=== PATIENT | female | born 1980 | race African-American/Black ===

== ENCOUNTER → 2016-07-19 | Outpatient (CLI) | payer OTHER ==
[~2016-07-19] MED LIST: AMOXICILLIN500 M1 PO; MEDROL4 MG/DOSE- PO
== END | disposition home or self-care (01) ==
LOC: CBAR 11:52
DX: Z01.818 Encounter for other preprocedural examination (principal); E66.01 Morbid (severe) obesity due to excess calories
CPT/HCPCS: G0463

== ENCOUNTER → 2016-08-16 | Outpatient (CLI) | payer OTHER | END | disposition home or self-care (01) | LOC: CBAR 10:49 | DX: Z01.818 Encounter for other preprocedural examination (principal); E66.01 Morbid (severe) obesity due to excess calories | CPT/HCPCS: G0463 ==

== ENCOUNTER → 2016-09-13 | Outpatient (CLI) | payer OTHER | END | disposition home or self-care (01) | LOC: CBAR 10:19 | DX: Z01.818 Encounter for other preprocedural examination (principal); E66.01 Morbid (severe) obesity due to excess calories | CPT/HCPCS: G0463 ==

== ENCOUNTER → 2016-09-29 | Outpatient (CLI) | payer OTHER ==
--- NOTE | ~2016-09-29 | MR32 ---
[facility] A Service of [facility] RADIOLOGY TEXT RESULTS PATIENT: BRENDAN LAGOS LOCATION: [facility] : 78 UNIT #: [id number] AGE: [address]: ELSI EUGENE PA-C SEX: F ORDER DR: [id number] [facility]. [place], [place] [address] [id number] O MR#: [id number] Acc #: [id number] NAME: BRENDAN LAGOS : 1980 SEX: F STUDY DATE/TIME: 09/29/2016 10:03 UNIT: [facility] ROOM: STUDY DESCRIPTION: MR Cervical Wo Contrast Attending Physician: Elsi Eugene Pa-C Referring Physician: Elsi Eugene Pa-C Ordering Physician: Elsi Eugene Pa-C Primary Care Physician: Nehemiah Arboleda M.D. MRI CENTER REPORT This report is preliminary unless electronic signature is present. EXAM Cervical spine MRI without. HISTORY Degenerative disc disease. Patient has chronic right neck and right shoulder pain since August 2013. Work related injury per patient. Right arm pain and numbness ever since the patient has not improved with shoulder injections. COMMENT MRI of the cervical spine performed without contrast using routine 1.5T imaging technique. COMPARISON No comparison. FINDINGS There is straightening of cervical lordosis. Bone marrow signal intensity is cellular but this is probably within the range of normal for age group and given likely obesity. There is mild cervical intervertebral disc desiccation most apparent at C5-6 and C6-7 where there is also some mild endplate spondylosis. There is no Chiari-I malformation. The cervical cord is normal in size and signal intensity. At C2-3, there is no significant abnormality. At C3-4, there is no significant abnormality. At C4-5, there is a minimal concentric disc bulge. Mild left foraminal narrowing. No canal stenosis. At C5-6, mild concentric disc bulging endplate spondylosis. No canal stenosis. Mild effacement of the anterior cord and thecal sac. There is [facility] A Service of [facility] RADIOLOGY TEXT RESULTS PATIENT: BRENDAN LAGOS LOCATION: [facility] : 78 UNIT #: [id number] AGE: [address]: ELSI EUGENE PA-C SEX: F ORDER DR: also mild left foraminal narrowing. At C6-7, there is concentric disc bulge endplate spondylosis with effacement of the left anterior thecal sac. There is no central canal stenosis. There is [id number] left foraminal narrowing. At C7-T1, no significant canal or foraminal impingement. I believe there is bilateral facet degenerative change. IMPRESSION 1. No evidence for cervical canal stenosis. 2. There are some cervical degenerative changes more prominent lower cervical levels. Please refer to the comment section for description of some left-sided foraminal narrowing. Dictated by... Francie Pugh M.D. THIS IS AN ELECTRONICALLY VERIFIED REPORT Francie Pugh M.D. at 09/30/2016 8:25 AM MARY/min TD: 09/30/2016 00:17 JOB #: [id number] MRI CENTER REPORT Page 1 of 1 COPY
== END | disposition home or self-care (01) ==
LOC: CMRI 09-22 13:00
DX: M50.30 Other cervical disc degeneration, unspecified cervical region (principal); M47.892 Other spondylosis, cervical region
CPT/HCPCS: 72141

== ENCOUNTER → 2016-09-30 | Outpatient (CLI) | payer OTHER ==
--- NOTE | ~2016-09-30 | CR151 ---
[facility] A Service of [facility] RADIOLOGY TEXT RESULTS PATIENT: BRENDAN LAGOS LOCATION: [facility] : 78 UNIT #: [id number] AGE: [address]: MONICA RIGGS MD SEX: F ORDER DR: [id number] [facility] [address] [facility]. [place], [place] [address] [id number] O MR#: [id number] Acc #: [id number] NAME: BRENDAN LAGOS : 1980 SEX: F STUDY DATE/TIME: 09/30/2016 13:50 UNIT: [facility] ROOM: STUDY DESCRIPTION: CR Hip Min 2 Views Rt Attending Physician: Monica Riggs M.D. Referring Physician: Monica Riggs M.D. Ordering Physician: Monica Riggs M.D. Primary Care Physician: Monica Riggs M.D. MEDICAL IMAGING REPORT This report is preliminary unless electronic signature is present EXAM Right hip, 2 views. DATE OF EXAM 09/30/2016 HISTORY Right hip pain, right groin pain for 3 months with no known injury. FINDINGS AP and oblique examination of the hip shows adequate mineralization of the bones and a normal anatomic relationship of the femoral head with the acetabulum. There are no hypertrophic changes, fractures, dislocation, or joint capsular distension. No radiopaque foreign body is present about the soft tissues of the hip. IMPRESSION Normal right hip. Dictated by... Mitul Bolaños M.D. THIS IS AN ELECTRONICALLY VERIFIED REPORT Mitul Bolaños M.D. at 10/04/2016 9:19 AM MANDI/min TD: 09/30/2016 17:21 JOB #: [id number] MEDICAL IMAGING REPORT Page 1 of 1 COPY
== END | disposition home or self-care (01) ==
LOC: CRAD 13:34
DX: R10.30 Lower abdominal pain, unspecified (principal)
CPT/HCPCS: 73502

== ENCOUNTER 2016-10-12 11:47 | Emergency (ER) | payer OTHER | END 2016-10-12 12:58 | disposition home or self-care (01) | LOC: CED 11:47 → CFTX 11:47 | DX: L02.416 Cutaneous abscess of left lower limb (principal); I10 Essential (primary) hypertension; E78.5 Hyperlipidemia, unspecified; J45.909 Unspecified asthma, uncomplicated; Z98.51 Tubal ligation status | CPT/HCPCS: 10060; 99283 ==

== ENCOUNTER → 2016-10-14 | Outpatient (CLI) | payer OTHER | END | disposition home or self-care (01) | LOC: CBAR 09:49 | DX: Z01.818 Encounter for other preprocedural examination (principal); E66.01 Morbid (severe) obesity due to excess calories | CPT/HCPCS: G0463 ==

== ENCOUNTER → 2016-11-01 | Outpatient (CLI) | payer OTHER | END | disposition home or self-care (01) | LOC: CBAR 11:47 | DX: Z01.818 Encounter for other preprocedural examination (principal); E66.01 Morbid (severe) obesity due to excess calories | CPT/HCPCS: G0463 ==

== ENCOUNTER → 2016-11-29 | Outpatient (CLI) | payer OTHER | END | disposition home or self-care (01) | LOC: CBAR 10:25 | DX: Z01.818 Encounter for other preprocedural examination (principal); E66.01 Morbid (severe) obesity due to excess calories | CPT/HCPCS: G0463 ==

== ENCOUNTER 2016-12-03 09:26 | Emergency (ER) | payer OTHER ==
[~2016-12-03] VITALS: Ht 160 cm; Wt 87.1 kg
== END 2016-12-03 12:22 | disposition home or self-care (01) ==
LOC: CED 09:26 → CFTX 09:26
DX: S61.211A Laceration without foreign body of left index finger without damage to nail, initial encounter (principal); I10 Essential (primary) hypertension; Z23 Encounter for immunization; J45.909 Unspecified asthma, uncomplicated; F41.9 Anxiety disorder, unspecified; W26.0XXA Contact with knife, initial encounter; Y92.009 Unspecified place in unspecified non-institutional (private) residence as the place of occurrence of the external cause
CPT/HCPCS: 12001; 90471; 90715; 99283

== ENCOUNTER → 2016-12-27 | Outpatient (CLI) | payer OTHER | END | disposition home or self-care (01) | LOC: CBAR 07:31 | DX: Z01.818 Encounter for other preprocedural examination (principal); E66.01 Morbid (severe) obesity due to excess calories | CPT/HCPCS: G0463 ==

== ENCOUNTER 2017-01-09 18:35 | Emergency (ER) | payer MEDICARE, OTHER ==
[~2017-01-09] VITALS: Ht 160 cm; Wt 83.9 kg
--- NOTE | ~2017-01-09 | CT2 ---
[facility] A Service of [facility] & [facility] RADIOLOGY TEXT RESULTS PATIENT: BRENDAN LAGOS LOCATION: [facility] : 78 UNIT #: [id number] AGE: [address]: Alistair Eason MD SEX: F ORDER DR: [id number] [facility] [address] [place], [place] [address] [id number] E MR#: [id number] Acc #: [id number] NAME: BRENDAN LAGOS : 1980 SEX: F STUDY DATE/TIME: 01/09/2017 22:18 UNIT: [facility] ROOM: STUDY DESCRIPTION: CT Abd and Pelv W Cont Attending Physician: Alistair Eason M.D. Ordering Physician: Alistair Eason M.D. Primary Care Physician: Nehemiah Arboleda M.D. MEDICAL IMAGING REPORT This report is preliminary unless electronic signature is present EXAM CT abdomen and pelvis with contrast, 01/09/2017. HISTORY 36-year-old female status post recent abdominoplasty surgery, 01/05/2017. She presents to the ED complaining of abdomen pain and constipation since her surgery. TECHNIQUE CT examination of the abdomen and pelvis was performed with IV contrast. GI contrast was not ordered. This CT exam was performed with one or more of the following radiation dose reduction techniques: automatic exposure control, adjustment of mA and/or kV according to patient size, and iterative reconstruction. ABDOMEN FINDINGS The exam shows postoperative changes of recent abdominoplasty surgery. A small, thin layer of abdominal wall fluid is present superficial to midline muscular fascia above the level of the umbilicus measuring about 8 mm in thickness and extending for a length of about 5.5 cm. There is no specific evidence of abscess or infected fluid collection, correlate clinically. There is no abdominal wall hernia or additional wound abnormality. Moderately large volume stool throughout the colon, particularly within the rectum, supportive of the reported clinical history of constipation. Small bowel and colon are otherwise normal in caliber and appearance, as imaged. The appendix is normal. Liver, pancreas and spleen are normal in size and appearance. No gallbladder distension or bile duct dilatation. There is a least 1 tiny nonobstructing calculus within each kidney. Kidneys are otherwise negative and there is no evidence of urinary obstruction. Normal-caliber [facility] A Service of [facility] RADIOLOGY TEXT RESULTS PATIENT: BRENDAN LAGOS LOCATION: [facility] : 78 UNIT #: [id number] AGE: [address]: Alistair Eason MD SEX: F ORDER DR: abdominal aorta. PELVIS FINDINGS Uterus, ovaries, urinary bladder and rectum are within normal limits. No inguinal hernia. Limited lung base images show no active disease in the lower chest. IMPRESSION 1. Postoperative changes of recent abdominoplasty surgery. A thin simple fluid collection is present in the anterior abdominal wall superficial to muscular fascia above the level of the umbilicus. No specific evidence of abscess or infected fluid collection, correlate clinically. No evidence of abdominal wall hernia or additional wound complication. 2. Moderately large volume stool throughout the colon, particularly in the low rectum. The appearance is supportive of the reported clinical diagnosis of constipation. Normal appendix. 3. At least 1 tiny nonobstructing calculus visible within each kidney. Dictated by... Aly Rodarte M.D. THIS IS AN ELECTRONICALLY VERIFIED REPORT Aly Rodarte M.D. at 01/10/2017 4:46 PM ENOCH/debora TD: 01/10/2017 10:56 JOB #: [id number] MEDICAL IMAGING REPORT Page 1 of 1 COPY
[2017-01-09 19:29] LABS: URINE SOURCE CLEAN CATCH
[2017-01-09 19:38] LABS: BASOPHIL% 0.5 % (0-2.5); EOSINOPHIL# 0.1 X10e3 (0-0.7); EOSINOPHIL% 1.4 % (0.0-7.0); HEMATOCRIT 36.5 % (35.0-45.0); HEMOGLOBIN 12.4 gm/dL (12.0-16.0); LYMPHOCYTE# 2.1 X10e3 (1.0-3.5); LYMPHOCYTE% 28.5 % (17.0-45.0); MEAN CELL VOLUME 87.7 FL (83-96); MEAN CORPUSCULAR HEMOGLOBIN 29.7 PG (28-34); MEAN CORPUSCULAR HGB CONC 33.9 g/dL (30-36); MEAN PLATELET VOLUME 8.7 FL (6.5-11.5); MONOCYTE# 0.3 X10e3 (0-1.0); MONOCYTE% 4.2 % (3.0-12.0); NEUTROPHIL# 4.9 X10e3 (1.5-7.1); NEUTROPHIL% 65.4 % (40-75); PLATELET COUNT 246 X10e3 (140-420); RED BLOOD COUNT 4.17 X10e (3.90-5.30); RED CELL DISTRIBUTION WIDTH 13.7 % (11.0-15.5); WHITE BLOOD COUNT 7.5 X10e3 (4.0-10.5)
[2017-01-09 19:41] LABS: DIFF IND NO
[2017-01-09 19:41] LABS: URINE APPEARANCE CLEAR; URINE BILIRUBIN NEG (NEG); URINE BLOOD 1+ (NEG); URINE COLOR YELLOW; URINE GLUCOSE NEG (NEG); URINE KETONE NEG (NEG); URINE LEUKOCYTE ESTERASE NEG (NEG); URINE NITRATE NEG (NEG); URINE PROTEIN NEG (NEG); URINE SPECIFIC GRAVITY 1.017 (1.003-1.035); URINE UROBILINOGEN 0.2 MG/DL (NEG)
[2017-01-09 19:46] LABS: URBCS1 AUWI 0-2 /[HPF] (0-2); URINE BACTERIA AUWI NEG (NEGATIVE); URINE SQUAMOUS EPITHELIAL CELL NONE SEEN /[HPF]; UWBCS1 AUWI 0-2 (0-5)
[2017-01-09 19:49] LABS: CULTURE INDICATED? NO
[2017-01-09 20:00] LABS: ALBUMIN SERUM 3.7 g/dL (3.5-5.0); ALKALINE PHOSPHATASE 62 U/L (32-92); ALT (SGPT) 21 U/L (10-40); AST (SGOT) 19 U/L (10-42); BILIRUBIN,TOTAL 0.3 mg/dL (0.2-2.0); BLOOD UREA NITROGEN 8 mg/dL (9-23); CALCIUM SERUM 9.1 mg/dL (8.4-10.2); CARBON DIOXIDE 29 mmol/L (22-31); CHLORIDE 100 mmol/L (100-111); GLOM FILT RATE Estimated 83.4 mL/min (>60); GLUCOSE FASTING 108 mg/dL (70-110); LIPASE 18 U/L (22-51); POTASSIUM 3.9 mmol/L (3.5-5.1); PROTEIN TOTAL SERUM 7.1 g/dL (6.0-8.3); SODIUM 136 mmol/L (135-145)
[2017-01-09 20:04] LABS: BILIRUBIN, DIRECT <0.1 mg/dL (0.0-0.2); BILIRUBIN,INDIRECT 0.2 mg/dL (0.0-0.9)
== END 2017-01-09 23:38 | disposition home or self-care (01) ==
LOC: CED 18:35
PROVIDERS: Emergency Medicine
DX: K59.00 Constipation, unspecified (principal); F41.9 Anxiety disorder, unspecified
CPT/HCPCS: 36415; 74177; 80048; 80076; 81003; 83690; 84703; 85025; 96374; 99284; J1885; Q9967

== ENCOUNTER → 2017-01-25 | Outpatient (CLI) | payer OTHER | END | disposition home or self-care (01) | LOC: CBAR 12:32 | DX: Z01.818 Encounter for other preprocedural examination (principal); E66.01 Morbid (severe) obesity due to excess calories | CPT/HCPCS: G0463 ==